=== PATIENT | female | born 1975 | race Two or more races ===

== ENCOUNTER 2020-03-01 01:45 | Emergency (ER) | payer SELFPAY ==
[~2020-03-01] VITALS: Ht 167.6 cm; Wt 210.0 kg
--- NOTE | 2020-03-01 02:14 | PHYS DOC ---
General Adult EDM: Chief Complaint: MULTIPLE COMPLAINTS HPI: HPI: 44-year-old female presents emergency department with complaints of shortness of breath, cough, congestion, back pain and headache, symptoms been ongoing x1 week. Nothing makes her symptoms worse, nothing makes her symptoms better. Patient denies fever on exam. Patient state she has had family who is sick however no confirmed positive COVID that she is aware of. Review of Systems: Review of Systems: Constitutional: Denies fever/ + chills. [] HENT: congestion Respiratory: Denies cough or shortness of breath. [] Cardiovascular: Denies chest pain or edema. [] GI: + abdominal pain, no nausea, vomiting, bloody stools or diarrhea. [] : Denies dysuria. [] Musculoskeletal: Denies back pain or joint pain. [] Integument: Denies rash. [] Neurologic: Denies headache, focal weakness or sensory changes. [] Endocrine: Denies polyuria or polydipsia. [] ] Heart Score: Risk Factors: Risk Factors: DM, Current or recent (<one month) smoker, HTN, HLP, family history of CAD, obesity. Risk Scores: Score 0 - 3: 2.5% MACE over next 6 weeks - Discharge Home Score 4 - 6: 20.3% MACE over next 6 weeks - Admit for Clinical Observation Score 7 - 10: 72.7% MACE over next 6 weeks - Early Invasive Strategies Physical Exam: PE: Constitutional: Well developed, well nourished, no acute distress, non-toxic appearance. [] HENT: Normocephalic, atraumatic, bilateral external ears normal, oropharynx moist, no oral exudates, nose normal. [] Eyes: PERRLA, EOMI, conjunctiva normal, no discharge. [] Cardiovascular:Heart rate regular rhythm, no murmur [] Lungs & Thorax: Bilateral breath sounds clear to auscultation [] Abdomen: Bowel sounds normal, soft, no tenderness, no masses, no pulsatile masses. [] Skin: Warm, dry, no erythema, no rash. [] Extremities: No tenderness, no edema. [] Neurologic: Alert and oriented X 3, no focal deficits noted. [] Psychologic: Affect normal, judgement normal, mood normal. [] EKG: EKG: EKG reviewed 023, no STEMI, normal axis, normal sinus rhythm no evidence of ST elevation. Heart rate 84 [] Radiology/Procedures: Radiology/Procedures: [facility] [address] [place] [address] IMAGING REPORT Signed PATIENT: LANDY ADLER ACCOUNT: [id number] : 1975 LOCATION: ER AGE: 44 SEX: F EXAM STATUS: REG ER ORD. PHYSICIAN: GIORGI WILSON MD REASON: cough/SOB PROCEDURE: PORTABLE CHEST 1V EXAM: CHEST ONE VIEW. HISTORY: Cough, shortness of breath. COMPARISON: None. FINDINGS: A frontal view of the chest is obtained. There are focal airspace opacities laterally in the right midlung and in the right perihilar region. Mild interstitial opacities are noted in the bases. There is no pneumothorax or pleural effusion. The heart is not enlarged. IMPRESSION: 1. Patchy infiltrates in the right perihilar region and right midlung. There are lesser infiltrates in the bases. Correlate for atypical pneumonia. Electronically signed by: Augusta Borrero MD (03/01/2020 2:50 AM) [facility] DICTATED and SIGNED BY: LOVE BORRERO MD DATE: 03/01/20249 [] Course & Med Decision Making: Course & Med Decision Making Pertinent Labs and Imaging studies reviewed. (See chart for details) []44-year-old female presents emergency department with complaints of shortness of breath, cough, congestion, back pain and headache, symptoms been ongoing x1 week. Nothing makes her symptoms worse, nothing makes her symptoms better. Pat ient denies fever on exam. Patient state she has had family who is sick however no confirmed positive COVID that she is aware of. Labs/Imaging reviewed CXR with evidence of patchy consolidation COVID swab pending Discussed quarantine and return precautions Tylenol as needed for fever/pain Reviewed lab findings with patient Nataly Disclaimer: Nataly Disclaimer: This electronic medical record was generated, in whole or in part, using a voice recognition dictation system. Departure Departure Impression: Primary Impression: Suspected 2019-nCoV infection Disposition: HOME, SELF-CARE Condition: STABLE Referrals: NO PCP (PCP) Patient Instructions: Pneumonia, Adult, Shortness of Breath, [id number] Additional Instructions: Recommend follow up with PCP in 14 days Quarantine yourself and family members who are sick for 14 days Tylenol as needed for fever/pain COVID testing completed will have results in 24 - 48 hours, we will call you if your test is positive Return to the ER for worsening SOB - if you are unable to complete daily activities like taking a shower, changing clothes, walking to the bathroom return to the ER GIORGI WILSON MD Mar 01, 2020 02:13
[2020-03-01 02:15] LABS: BASO % 0 % (0-3); EOS # 0.2 x10^3/uL (0.0-0.7); EOS % 2 % (0-3); HEMATOCRIT 37.1 % (36.0-47.0); HEMOGLOBIN 12.5 g/dL (12.0-15.5); LYMPH # 1.4 x10^3/uL (1.0-4.8); LYMPH % 14 % (24-48); MEAN CORPUSCULAR HEMOGLOBIN 28 pg (25-35); MEAN CORPUSCULAR HGB CONC 34 g/dL (31-37); MEAN CORPUSCULAR VOLUME 82 fL (79-100); MONO # 0.9 x10^3/uL (0.0-1.1); MONO % 9 % (0-9); NEUT # 7.7 x10^3/uL (1.8-7.7); NEUT % 75 % (31-73); PLATELET COUNT 369 x10^3/uL (140-400); RED BLOOD COUNT 4.51 x10^6/uL (3.50-5.40); RED CELL DISTRIBUTION WIDTH 13.3 % (11.5-14.5); WHITE BLOOD COUNT 10.2 x10^3/uL (4.0-11.0)
[2020-03-01 02:28] LABS: CALCIUM 8.9 mg/dL (8.5-10.1); CREATININE 0.6 mg/dL (0.6-1.0); GFR 108.1; POTASSIUM 3.7 mmol/L (3.5-5.1)
[2020-03-01 02:33] LABS: ALBUMIN 3.3 g/dL (3.4-5.0); ALBUMIN/GLOBULIN RATIO 0.8 (1.0-1.7); TOTAL BILIRUBIN 0.5 mg/dL (0.2-1.0); TOTAL PROTEIN 7.5 g/dL (6.4-8.2)
--- NOTE | 2020-03-01 02:53 | RAD ---
EXAM: CHEST ONE VIEW. HISTORY: Cough, shortness of breath. COMPARISON: None. FINDINGS: A frontal view of the chest is obtained. There are focal airspace opacities laterally in the right midlung and in the right perihilar region. Mild interstitial opacities are noted in the bases. There is no pneumothorax or pleural effusion. The heart is not enlarged. IMPRESSION: 1. Patchy infiltrates in the right perihilar region and right midlung. There are lesser infiltrates in the bases. Correlate for atypical pneumonia. Electronically signed by: Augusta Borrero MD (03/01/2020 2:50 AM) [facility]
[2020-03-01 03:04] LABS: INFLUENZA A PATIENT NEGATIVE (NEGATIVE); INFLUENZA B PATIENT NEGATIVE (NEGATIVE)
[2020-03-01] MEDS ORDERED: ONDANSETRON PF 4 MG/2 ML VIAL. IVP ONE (03:30)
[2020-03-01] MEDS ORDERED: ACETAMINOPHEN 500 MG TABLET PO ONE (03:30)
[2020-03-01] MEDS ORDERED: MORPHINE SULFATE 2 MG/ML VIAL. IV ONE (03:30)
[2020-03-01 04:30] VITALS: BP 124/78
--- NOTE | 2020-03-01 20:34 | EKG ---
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
== END 2020-03-01 04:40 | disposition home or self-care (01) ==
LOC: ER 01:45
DX: U07.1 COVID-19 (principal); R06.02 Shortness of breath; R05 Cough; R51 Headache; R09.81 Nasal congestion
CPT/HCPCS: 36415; 71045; 80053; 83690; 85025; 87804; 93005; 96374; 96375; 99285; J2270; J2405